=== PATIENT | female | born 1950 | race Caucasian/White ===

== ENCOUNTER → 2018-06-12 | Outpatient (CLI) | payer MEDICARE, OTHER ==
--- NOTE | 2018-06-12 11:33 | RAD ---
History: Osteoporosis screening, ovarian failure, breast cancer with tamoxifen treatment, white female. Comparison: None. Findings: Bone Densitometry was performed with dual photon absorption of the lumbar spine and proximal right femur. Lumbar Spine: Bone density is 1.107 g/cm2 for L1-L4. T-Score is -0.6. Z-score is -0.1. Mean of proximal right femur: Bone density is 0.860 g/cm2. T-Score is -1.2. Z-score is -0.6. Right femoral neck: Bone density is 0.839 g/cm2. T-Score is -1.4. Z-score is -0.5. IMPRESSION: 1. Bone mineral density of lumbar spine appears within normal limits. 2. Osteopenia of the proximal right femur. World Health definition of osteoporosis and osteopenia: Normal = T-Score at or above -1.0; osteopenia = T-score between -1.0 and -2.5; osteoporosis = T-score at or below -2.5 Electronically signed by: Laci Doherty MD (06/12/2018 11:29 AM) [email or web address]
--- NOTE | 2018-06-12 15:27 | RAD ---
DATE: 06/12/2018 EXAM: MAMMO SEVEN SCREENING BILATERAL HISTORY: Previous left breast cancer COMPARISON: 06/06/2016 This study was interpreted with the benefit of Computerized Aided Detection (CAD). The breast parenchyma shows scattered fibroglandular densities. Breast parenchyma level B. FINDINGS: 2-D and 3-D tomosynthesis imaging was performed in CC and MLO projections. There is an irregular density with architectural distortion in the lateral aspect of the left breast which is unchanged and is compatible with scarring on a post therapeutic basis. There is coarse dystrophic calcification centrally within this density. No new or enlarging breast densities are seen. Additional scattered benign type calcifications are present. No suspicious microcalcifications have developed. IMPRESSION: Stable mammograms without evidence of malignancy. BI-RADS CATEGORY: 2 BENIGN FINDING(S) RECOMMENDED FOLLOW-UP: 12M 12 MONTH FOLLOW-UP PQRS compliance statement: Patient information was entered into a reminder system with a target due date for the next mammogram. Mammography is a sensitive method for finding small breast cancers, but it does not detect them all and is not a substitute for careful clinical examination. A negative mammogram does not negate a clinically suspicious finding and should not result in delay in biopsying a clinically suspicious abnormality. "Our facility is accredited by the [employer] Mammography Program."
== END | disposition home or self-care (01) ==
LOC: DXRAD 09:43
PROVIDERS: ATTEND Family Medicine
DX: Z12.31 Encounter for screening mammogram for malignant neoplasm of breast (principal); Z13.820 Encounter for screening for osteoporosis; M85.88 Other specified disorders of bone density and structure, other site
CPT/HCPCS: 77063; 77067; 77080

== ENCOUNTER → 2018-08-01 | Outpatient (CLI) | payer MEDICARE, OTHER ==
--- NOTE | 2018-08-01 17:02 | RAD ---
Complete abdominal ultrasound History: Intermittent left abdominal pain for several months. Comparison: None. Procedure: Transabdominal ultrasound images are obtained. Findings: Visualized pancreas is unremarkable. Liver is normal in echogenicity. No focal hepatic masses are identified. Right lobe of the liver measures 14.1 cm. Gallbladder demonstrates cholelithiasis. No gallbladder wall thickening or pericholecystic fluid is identified. Common bile duct measures normally at 4 mm in diameter. Spleen is homogeneous and measures 11.3 cm in length. Right kidney measures 11.4 cm in length. Moderate hydronephrosis is seen. Left kidney measures 11.8 cm in length. Left kidney demonstrates presence of multiple parapelvic cysts.. Visualized portions of the aorta and IVC have normal caliber. Impression: 1. Moderate right hydronephrosis. Cause is not identified. 2. Left parapelvic cysts. 3. Cholelithiasis without evidence of cholecystitis. Electronically signed by: Laci Doherty MD (08/01/2018 4:58 PM) [email or web address]
== END | disposition home or self-care (01) ==
LOC: US 08:39
PROVIDERS: ATTEND Family Medicine
DX: K80.20 Calculus of gallbladder without cholecystitis without obstruction (principal); N13.39 Other hydronephrosis; N94.89 Other specified conditions associated with female genital organs and menstrual cycle
CPT/HCPCS: 76700

== ENCOUNTER → 2019-07-02 | Outpatient (CLI) | payer MEDICARE, OTHER ==
--- NOTE | 2019-07-03 17:59 | RAD ---
BILATERAL SCREENING MAMMOGRAM, 3-D History: Routine screening. Left breast cancer diagnosed in 1999. Comparison: 05/14/2014, 06/12/2018 mammographic exams. Technique: MLO and CC digital tomosynthesis (3D) images obtained. Radiologist reviewed these images on dedicated workstation. Findings: Breast Tissue Density B : There are scattered areas of fibroglandular density. There are no dominant masses, suspicious microcalcifications, or new architectural distortion. Left upper outer breast postoperative distortion is stable compared to prior exams. IMPRESSION: No mammographic evidence of malignancy. Recommend routine screening. BI-RADS category 1: Negative. The images were reviewed with computer-aided detection. Patient information is entered into reminder system with a target due date for the next screening mammogram. Mammography is the most sensitive method for finding small breast cancers, but it does not detect them all and is not a substitute for careful clinical examination. A negative mammogram does not negate a clinically suspicious finding and should not result in delay in biopsying a clinically suspicious abnormality. "Our facility is accredited by the [employer] Mammography [employer]." Electronically signed by: Fede Baires MD (07/03/2019 5:56 PM) [facility]
== END | disposition home or self-care (01) ==
LOC: MAMMO 08:04
PROVIDERS: ATTEND Family Medicine
DX: Z12.31 Encounter for screening mammogram for malignant neoplasm of breast (principal); Z85.3 Personal history of malignant neoplasm of breast
CPT/HCPCS: 77063; 77067

== ENCOUNTER → 2020-07-04 | Outpatient (CLI) | payer MEDICARE, OTHER ==
--- NOTE | 2020-07-04 12:42 | RAD ---
DATE: 07/04/2020 11:05 AM EXAM: MAMMO SEVEN SCREENING BILATERAL HISTORY: Screening . Personal history of left breast DCIS lumpectomy in 2000 COMPARISON: 07/02/2019 Bilateral CC and MLO views of the breasts were performed. Bilateral breast tomosynthesis was performed in CC and MLO projections. This study was interpreted with the benefit of Computerized Aided Detection (CAD). FINDINGS: Breast Density: FATTY The Breast Parenchyma is primarily fatty replaced. Breast parenchyma level density A. Stable benign postsurgical change in the posterior upper outer left breast. No suspicious masses, microcalcifications or architectural distortion is present to suggest malignancy in either breast. The visualized axillae are unremarkable. IMPRESSION: No mammographic evidence of malignancy. BI-RADS CATEGORY: 2 BENIGN FINDING(S) RECOMMENDED FOLLOW-UP: 12M 12 MONTH FOLLOW-UP Annual screening mammography is recommended, unless clinically indicated sooner based on symptoms or change in physical exam. PQRS compliance statement: Patient information was entered into a reminder system with a target due date for the next mammogram. Mammography is a sensitive method for finding small breast cancers, but it does not detect them all and is not a substitute for careful clinical examination. A negative mammogram does not negate a clinically suspicious finding and should not result in delay in biopsying a clinically suspicious abnormality. "Our facility is accredited by the [employer] Mammography [employer]."
== END | disposition home or self-care (01) ==
LOC: MAMMO 10:54
PROVIDERS: ATTEND Family Medicine
DX: Z12.31 Encounter for screening mammogram for malignant neoplasm of breast (principal)
CPT/HCPCS: 77063; 77067

== ENCOUNTER → 2020-09-22 | Outpatient (CLI) | payer MEDICARE, OTHER ==
--- NOTE | 2020-09-22 10:44 | RAD ---
EXAM: DUAL ENERGY X-RAY ABSORPTIOMETRY (DEXA). HISTORY: Postmenopausal screening. FINDINGS: The lowest measured T-score is -1.5 in the right femoral neck, based on a bone mineral density of 0.750 g/cm^2. Refer to the worksheets for full detail. In comparison with the prior study of 06/12/2018, average bone mineral density at the lumbar spine has changed +1.2%, while the average density at the right hip has changed +1.9%. IMPRESSION: Low bone mass. Bone mineral density yields a T-score between -1.0 and -2.5. Fracture risk is increased. FRAX was not calculated. METHODOLOGY: Dual energy x-ray absorptiometry was performed to measure bone mineral density. The following analysis is based on the 2019 Official Positions of the International Society for Clinical Densitometry: Measurements of the hips and the average of L1-L4 are preferred. When the spine and/or hip cannot be feasibly measured or interpreted, or in the setting of hyperparathyroidism, distal radial bone mineral density may be measured. The lumbar spine T-score is based on the average bone mineral density of L1-L4. In the setting of artifact or anatomic abnormality, some lumbar levels may be excluded, and the remaining levels used for calculation. A single lumbar level is not used for diagnosis, and if only a single level is available for assessment, another anatomic site will be used to assign a diagnosis. The hip T-score is based on the bone mineral density measurement of the femoral neck or total proximal femur of either side, whichever is lowest. Bilateral mean values are not used for diagnosis. The forearm T-score is derived from 33% of the distal radius of the nondominant forearm. For postmenopausal and perimenopausal women, and men age 50 or older, of all ethnic groups, T-scores are calculated through comparison of the current measurement with the NHANES III database standard for females aged 20-29 years. The lowest T-score of the evaluated anatomic sites is used to assign a diagnosis based on the World Health Organization densitometric classification. In premenopausal females and males younger than age 50, a Z-score is calculated based on population specific reference data for patient sex and self-reported ethnicity. Electronically signed by: Radha Bolivar MD (09/22/2020 10:41 AM) [id number]
== END ==
LOC: DXRAD 09:52
PROVIDERS: ATTEND Family Medicine
DX: M89.9 Disorder of bone, unspecified (principal); M85.88 Other specified disorders of bone density and structure, other site; M81.8 Other osteoporosis without current pathological fracture; M94.9 Disorder of cartilage, unspecified
CPT/HCPCS: 77080

== ENCOUNTER → 2021-07-06 | Outpatient (CLI) | payer MEDICARE, OTHER ==
--- NOTE | 2021-07-07 09:00 | RAD ---
INDICATION: 71 years of age asymptomatic female patient presents for screening mammography. TECHNIQUE: Full field craniocaudal and mediolateral oblique images of both breasts were obtained usi ng digital technique with tomosynthesis and also analyzed with computer-aided detection software. COMPARISON: Prior mammographic imaging 07/04/2020 06/06/2016 07/02/2019, 06/12/2018 BREAST COMPOSITION: Category B: There are scattered fibroglandular densities. FINDINGS: Benign calcifications are present. The parenchymal pattern appears stable. No suspicious masses, microcalcifications or architectural distortion is present to suggest malignanc y in either breast. The visualized axillae are unremarkable. IMPRESSION: No mammographic evidence of malignancy. RECOMMENDATION: Annual screening mammography is recommended, unless clinically indicated sooner based on symptoms or change in physical exam. BIRADS 2: BENIGN This study was interpreted with the benefit of Computerized Aided Detection (CAD). Patient information is entered into the reminder system with a target due date for the next screening mammogram. Mammography is the most sensitive method for finding small breast cancers, but it does not detect the m all and is not a substitute for careful clinical examination. A negative mammogram does not negate a clinically suspicious finding and should not result in delay in biopsying a clinically suspicious a bnormality. "Our facility is accredited by the [employer] Mammography Program." Electronically signed by: Jourdan Montez MD (07/07/2021 8:57 AM) [facility]
== END ==
LOC: MAMMO 07:54
PROVIDERS: ATTEND Family Medicine
DX: Z12.31 Encounter for screening mammogram for malignant neoplasm of breast (principal)
CPT/HCPCS: 77063; 77067

== ENCOUNTER → 2021-08-11 | Outpatient (CLI) | payer MEDICARE, OTHER ==
--- NOTE | 2021-08-11 10:48 | RAD ---
Site ID: [id number] EXAMINATION: Left lower extremity duplex venous ultrasound. TECHNIQUE: DVT protocol. Multiple sonographic images with color Doppler and waveform interrogation we re performed of the left lower extremity veins with compression and augmentation maneuvers. INDICATION: 71 years Female, left leg pain. FINDINGS: The left lower extremity veins from the groin to below the knee veins were examined with no rmal color-flow, compressibility and waveform demonstrated. The great saphenous vein visualized porti on proximally is patent. IMPRESSION: No evidence of DVT in the left lower extremity. Electronically signed by: Ryley De La Torre MD (08/11/2021 10:45 AM) [id number]
== END ==
LOC: RAD 09:00
PROVIDERS: ATTEND Family Medicine
DX: M79.605 Pain in left leg (principal)
CPT/HCPCS: 93971

== ENCOUNTER → 2021-08-31 | Outpatient (CLI) | payer MEDICARE, OTHER ==
[~2021-08-31] MED LIST: IOHEXOL 240 MG/ML 50ML VIAL. ONE; IOHEXOL 240 MG/ML 50ML VIAL. PO ONE; IOHEXOL 300 MG/ML 75 ML VIAL. IV ONE
--- NOTE | 2021-08-31 11:25 | RAD ---
EXAM: Abdomen and pelvis CT with intravenous contrast. HISTORY: Left lower extremity swelling. TECHNIQUE: Computed tomographic images of the abdomen and pelvis were obtained following the administ ration of intravenous contrast. Multiplanar reformatting was performed. *One or more of the following individualized dose reduction techniques were utilized for this examina tion: 1. Automated exposure control. 2. Adjustment of the mA and/or kV according to patient size. 3. Use of iterative reconstruction technique. COMPARISON: None. FINDINGS: Evaluation of the lower thorax demonstrates basilar atelectasis. No infiltrate or pleural e ffusion is seen. There is biliary ductal dilatation, likely due to reservoir effect status post vamshi cystectomy. There is a 6 mm hypodense lesion within the posterior right hepatic lobe, too small to ch aracterize. The pancreas is unremarkable. There is a splenule adjacent to a normal sized spleen. The adrenal glands are unremarkable. There are multiple bilateral renal parapelvic cysts. There are few small simple cortical cysts measur ing up to 2.7 cm within the left kidney. No solid renal lesion is seen. There is no hydronephrosis. T here is renal cortical thinning. There is no appendicitis. There is no bowel obstruction. There is distal colonic diverticulosis. Ther e is no diverticulitis. The urinary bladder is unremarkable. The uterus is absent. No adnexal lesion is seen. The aorta is normal in caliber. There is mild aortic and bilateral iliac atherosclerosis. No pathologically enlarged mesenteric or peritoneal lymph node is seen. There are degenerative changes throughout the visualized spine, primarily at the lumbosacral junction . There are few tiny benign bone islands and osseous hemangiomas. There is no acute or suspicious oss eous finding. There are multiple radiodensities along a suspected surgical scar along the proximal la teral left thigh subcutaneous fat. IMPRESSION: 1. Distal colonic diverticulosis. 2. Multiple simple renal cysts. Follow-up is not routinely performed for simple cysts. 3. Biliary ductal dilatation likely due to reservoir effect status post cholecystectomy. 4. 6 mm hypodense lesion within the liver. This is too small to characterize on this exam. In the abs ence of known malignancy, this likely a cyst or hemangioma. 5. Scarring within the proximal lateral left thigh subcutaneous fat with associated radiodense postop erative material or dense calcification. No suspicious mass or fluid collection is seen in this locat ion. Correlate with surgical history. Electronically signed by: Vickie Meyer MD (08/31/2021 11:23 AM) [id number]
== END ==
LOC: CT 09:41
PROVIDERS: ATTEND Family Medicine
DX: K57.30 Diverticulosis of large intestine without perforation or abscess without bleeding (principal); N28.1 Cyst of kidney, acquired; M79.89 Other specified soft tissue disorders; N94.89 Other specified conditions associated with female genital organs and menstrual cycle
CPT/HCPCS: 74177; Q9966; Q9967

== ENCOUNTER 2021-10-06 08:32 | Emergency (ER) | payer MEDICARE, OTHER ==
[~2021-10-06] VITALS: Ht 167.6 cm; Wt 99.8 kg
--- NOTE | 2021-10-06 08:44 | PHYS DOC ---
Adult General Chief Complaint Chief Complaint: CHEST PAIN HPI HPI Patient is a 71-year-old female presenting via POV for chest pain. Reports she was woken from sleep at 5:30 AM with substernal chest pressure. States it is pressure in nature with some radiation to left arm and back and has been steady. She reports it was initially 7/10 severity but was able to get up and tried to drink coffee thinking it was acid reflux but her symptoms did not significantly improve prompting her to come in for evaluation. Nothing known makes better, laying flat and physical exertion makes worse. Timing of symptoms has been constant since onset. Severity is decreased but chronicity of symptoms concerned her and daughter prompting her to come in for evaluation. Patient does admit she has had troubles with her blood pressure and swelling in recent weeks. She has been well covered in outpatient setting with primary care physician and had recent echocardiogram performed that was unremarkable. Admits she has had left upper extremity and left lower extremity swelling and has had ultrasonography of left lower extremity performed that was unremarkable for DVT, she was expected to present for outpatient labs prior to seeing primary care physician today but given symptoms, decided to come in the ER for evaluation instead. Has no personal history of CAD. Admits only new medication changes decreasing hydrochlorothiazide for which she uses for new onset edema. Review of Systems Review of Systems Fourteen body systems of review of systems have been reviewed. See HPI for pertinent positives and negative responses, other chan all other systems are negative, non-pertinent or non-contributory Allergies Allergies Allergies Coded Allergies Type Severity Reaction Last Updated Verified No Known Drug Allergies 08/31/21 No Physical Exam Physical Exam Constitutional: Well developed, well nourished, no acute distress, non-toxic appearance. HENT: Normocephalic, atraumatic, bilateral external ears normal, oropharynx moist, no oral exudates, nose normal. Eyes: PERRLA, EOMI, conjunctiva normal, no discharge. Neck: Normal range of motion, no tenderness, supple, no stridor. Cardiovascular: Heart rate regular, sinus rhythm, no murmurs rubs or gallops Lungs & Thorax: Bilateral breath sounds clear to auscultation Abdomen: Bowel sounds normal, soft, no tenderness, no masses, no pulsatile masses. Nonsurgical abdomen, no peritoneal signs Skin: Warm, dry, no erythema, no rash. Back: No tenderness, no CVA tenderness. Extremities: No tenderness, no cyanosis, no clubbing, ROM intact, no edema. Neurologic: Alert and oriented X 3, grossly normal motor & sensory function, no focal deficits noted. Psychologic: Affect normal, judgement normal, mood normal. Current Patient Data Vital Signs Vital Signs Date Time Temp Pulse Resp B/P (MAP) Pulse Ox O2 Delivery O2 Flow Rate FiO2 10/06/21 08:49 98.5 62 18 130/66 (87) 98 Room Air Vital Signs Date Time Temp Pulse Resp B/P (MAP) Pulse Ox O2 Delivery O2 Flow Rate FiO2 10/06/21 09:26 74 18 120/61 (80) 96 Room Air 10/06/21 08:49 98.5 Lab Results Laboratory Tests Test 10/06/21 09:24 White Blood Count 7.6 x10^3/uL Red Blood Count 4.25 x10^6/uL Hemoglobin 12.5 g/dL Hematocrit 37.6 % Mean Corpuscular Volume 89 fL Mean Corpuscular Hemoglobin 29 pg Mean Corpuscular Hemoglobin Concent 33 g/dL Red Cell Distribution Width 12.8 % Platelet Count 184 x10^3/uL Neutrophils (%) (Auto) 74 % Lymphocytes (%) (Auto) 15 % Monocytes (%) (Auto) 8 % Eosinophils (%) (Auto) 2 % Basophils (%) (Auto) 0 % Neutrophils # (Auto) 5.6 x10^3uL Lymphocytes # (Auto) 1.1 x10^3/uL Monocytes # (Auto) 0.6 x10^3/uL Eosinophils # (Auto) 0.2 x10^3/uL Basophils # (Auto) 0.0 x10^3/uL D-Dimer (Amie) 0.73 mg/L Sodium Level 145 mmol/L Potassium Level 4.0 mmol/L Chloride Level 107 mmol/L Carbon Dioxide Level 30 mmol/L Anion Gap 8 Blood Urea Nitrogen 18 mg/dL Creatinine 0.8 mg/dL Estimated GFR (Cockcroft-Gault) 70.5 Glucose Level 97 mg/dL Calcium Level 9.1 mg/dL [id number]-[id number] Natriuretic Peptide 493 pg/mL Current Medications Medications (Trade) Dose Ordered Sig/Monroe Route PRN Reason Start Time Stop Time Status Last Admin Dose Admin Aspirin (Aspirin Chewable) 324 mg 1X ONCE PO 10/06/21 09:00 10/06/21 09:06 DC 10/06/21 09:17 Nitroglycerin (Nitrostat) 0.4 mg PRN Q5MIN PRN SL CP RATING > 1/10 10/06/21 09:00 10/07/21 08:59 10/06/21 09:46 Iohexol (Omnipaque 350 Mg/ml) 100 ml 1X ONCE IV 10/06/21 10:15 10/06/21 10:21 DC 10/06/21 10:23 EKG EKG EKG ordered and interpreted by myself at 0855 hrs. is sinus rhythm at 75 bpm, prolonged QTC at 474 otherwise unremarkable intervals, left axis deviation, no STEMI Radiology/Procedures Radiology/Procedures EXAM: AP View of the chest DATE: 10/06/2021 9:04 AM INDICATION: Reason: CHEST PAIN ONSET THIS MORNING, HX OF ASTHMA / Spl. Instructions: / History: COMPARISON: No Prior FINDINGS: The heart is not enlarged. Mediastinal and hilar contours are normal. Patchy opacity left lung base likely atelectasis or developing consolidation. Trace left pleural effusion. No pneumothorax. IMPRESSION: Patchy opacity left lung base likely atelectasis or developing consolidation. Trace left pleural effusion Electronically signed by: Jourdan Montez MD (10/06/2021 9:11 AM) [id number] Heart Score C/O Chest Pain: Yes HEART Score for Chest Pain: HEART Score for Chest Pain Response (Comments) Value History Moderately Suspicious 1 ECG Normal 0 Age > 65 2 Risk Factors 1 or 2 Risk Factors 1 Total 4 Risk Factors: Risk Factors: DM, Current or recent (<one month) smoker, HTN, HLP, family history of CAD, obesity. Risk Scores: Risk Factors: DM, Current or recent (<one month) smoker, HTN, HLP, family histo ry of CAD, obesity. Course & Med Decision Making Course & Med Decision Making ABCs unremarkable HPI physical exam and comprehensive ER work-up nonconcerning for any emergent or surgical issues I discussed most likely diagnosis of developing pneumonia, joint decision made to treat this with azithromycin and amoxicillin for which patient tolerated in ER setting I discussed elevated heart score and recommended hospitalization for further cardiac observation, patient deferred Also disclosed in its entirety all ER findings significant for pulmonary nodules and renal and parapelvic cysts which will require nonemergent outpatient follow- up, patient understood importance of this Patient still voicing to discharge home and attempt outpatient therapy, as such, close outpatient follow-up and strict return precautions were discussed at length. All questions and concerns addressed prior to ER departure Soni Disclaimer Soni Disclaimer This electronic medical record was generated, in whole or in part, using a voice recognition dictation system. Departure Departure: Impression: Primary Impression: Pneumonia Additional Impressions: Atypical chest pain Pulmonary nodule Bilateral renal cysts Edema Disposition: HOME / SELF CARE / HOMELESS Condition: STABLE Referrals: JAMES PERAZA MD (PCP) Additional Instructions: As discussed prior to ER departure, your vitals, physical exam and comprehensive ER work-up was nonconcerning for any emergent or surgical issues I discussed all findings with you prior to ER departure. I stressed concern for developing pneumonia and so antibiotics were prescribed. Also disclosed finding of pulmonary nodule that will require monitoring in outpatient setting with repeat CT chest In addition, bilateral renal and parapelvic cysts were incidentally found that should prompt outpatient follow-up via ultrasonography Please contact your primary care provider today to review ER visit and need for close outpatient follow-up. If any concerning signs or symptoms present prior to outpatient follow-up please do not hesitate to come back for repeat evaluation. It was a pleasure to take care of you and I wish you the best going forward Scripts Amoxicillin (AMOXICILLIN) 500 Mg Tablet 2 TAB PO BID for pneumonia for 7 Days, #28 TAB Prov: LUPE HA DO 10/06/21 Azithromycin (AZITHROMYCIN TABLET) 250 Mg Tablet 250 MG PO DAILY for ANTI-BIOTIC, #4 TAB 0 Refills Prov: LUPE HA DO 10/06/21 Problem Qualifiers LUPE HA DO Oct 06, 2021 08:43
[2021-10-06] MEDS ORDERED: ASPIRIN CHEWABLE 81 MG TABLET. PO ONE (09:00)
--- NOTE | 2021-10-06 09:11 | EKG ---
[address] [address] Test Date: 2021-10-06 Test Time: 08:50:09 Pat Name: DAV KING Department: Room: Gender: F Shop Teacher: AYLA : 1950 Requested By: LUPE HA Order Number: [id number] Reading MD: Tres Villeda MD Measurements Intervals [place] Rate: 75 P: -58 [place]: 148 QRS: -7 QRSD: 84 T: 42 QT: 422 QTc: 474 Interpretive Statements SINUS RHYTHM PAC NON-SPECIFIC ST/T CHANGES Electronically Signed On 10-08-2021 20:52:35 PAIN MEDICINE PHYSICIAN by Tres Villeda MD
--- NOTE | 2021-10-06 09:14 | RAD ---
EXAM: AP View of the chest DATE: 10/06/2021 9:04 AM INDICATION: Reason: CHEST PAIN ONSET THIS MORNING, HX OF ASTHMA / Spl. Instructions: / History: COMPARISON: No Prior FINDINGS: The heart is not enlarged. Mediastinal and hilar contours are normal. Patchy opacity left lung base likely atelectasis or developing consolidation. Trace left pleural effu td. No pneumothorax. IMPRESSION: Patchy opacity left lung base likely atelectasis or developing consolidation. Trace left pleural effu td Electronically signed by: Jourdan Montez MD (10/06/2021 9:11 AM) [id number]
[2021-10-06] MEDS: NITROGLYCERIN SUBLINGUAL 0.4 MG BOTTLE OF 25. SL PRN ×2 (09:25→09:46)
[2021-10-06 09:40] LABS: BASO % 0 % (0-3); EOS # 0.2 x10^3/uL (0.0-0.7); EOS % 2 % (0-3); HEMATOCRIT 37.6 % (36.0-47.0); HEMOGLOBIN 12.5 g/dL (12.0-15.5); LYMPH # 1.1 x10^3/uL (1.0-4.8); LYMPH % 15 % (24-48); MEAN CORPUSCULAR HEMOGLOBIN 29 pg (25-35); MEAN CORPUSCULAR HGB CONC 33 g/dL (31-37); MEAN CORPUSCULAR VOLUME 89 fL (79-100); MONO # 0.6 x10^3/uL (0.0-1.1); MONO % 8 % (0-9); NEUT # 5.6 x10^3uL (1.8-7.7); NEUT % 74 % (31-73); PLATELET COUNT 184 x10^3/uL (140-400); RED BLOOD COUNT 4.25 x10^6/uL (3.50-5.40); RED CELL DISTRIBUTION WIDTH 12.8 % (11.5-14.5); WHITE BLOOD COUNT 7.6 x10^3/uL (4.0-11.0)
[2021-10-06 09:59] LABS: CALCIUM 9.1 mg/dL (8.5-10.1); CREATININE 0.8 mg/dL (0.6-1.0); GFR 70.5
[2021-10-06] MEDS ORDERED: IOHEXOL 350 MG/ML 100 ML VIAL. IV ONE (10:15)
--- NOTE | 2021-10-06 10:52 | RAD ---
EXAM: CT chest with contrast - pulmonary embolus protocol CLINICAL HISTORY: Reason: SHORTNESS OF BREATH - 100MLS OMNI 350 / Spl. Instructions: / History: . COMPARISON: 10/06/2020. TECHNIQUE: CT of the chest following the administration of intravenous contrast during the pulmonary arterial phase. Axial, coronal and sagittal reformatted images were generated including MIP images. ---PQRS compliance statement - One or more of the following individualized dose reduction techniques were utilized for this study: 1. Automated exposure control 2. Adjustment of the mA and/or kV according to patient size 3. Use of iterative reconstruction technique--- FINDINGS: CHEST: Diagnostic quality: Adequate. Pulmonary emboli: No pulmonary emboli to the level of the subsegmental branches. More peripheral ves sels are not well assessed. Right heart strain: None Pulmonary arteries: Normal in caliber. Heart is not enlarged. No pericardial effusion. No pleural effusion. No pneumothorax. No mediastinal or hilar lymphadenopathy. No axillary lymphadenopathy. Linear and bandlike opacities lower lobes likely scarring/atelectasis. Minimal patchy opacities left lung base. 5 mm medial right upper lobe lung nodule (image 35) is seen. No aggressive osseous lesion is seen. Degenerative changes in spine are seen. Several renal cysts inc luding parapelvic cysts are seen within the kidneys bilaterally. There may be mild hydronephrosis alt mary not well profiled. IMPRESSION: 1. No pulmonary emboli to the level of the subsegmental branches. More peripheral vessels are not we ll assessed. 2. 5 mm medial right upper lobe lung nodule. Per Fleischner Society guidelines for incidentally foun d solid nodules measuring less than 6 mm, no follow-up is necessary if patient is considered at low r isk for lung cancer. If patient is considered to be at high risk, such as with history of smoking, en CT follow-up in about 12 months can be considered. 3. Bilateral renal and parapelvic cysts are seen. Mild hydronephrosis is suspected although not well profiled given the parapelvic cysts. This can be further assessed by ultrasound. 4. Minimal patchy opacities left lung base a represent atelectasis although early/developing consoli dation is not excluded.. Electronically signed by: Jourdan Montez MD (10/06/2021 10:50 AM) [facility]
[2021-10-06 11:00] VITALS: BP 113/52
[2021-10-06] MEDS ORDERED: AMOX500T PO (11:16)
[2021-10-06] MEDS ORDERED: AZIT250T6 PO (11:16)
[2021-10-06] MEDS ORDERED: AMOXICILLIN 250 MG CAPSULE PO ONE (11:30)
[2021-10-06] MEDS ORDERED: AZITHROMYCIN 250 MG TABLET. PO ONE (11:30)
== END 2021-10-06 11:23 | disposition home or self-care (01) ==
LOC: ER 08:32
DX: J18.9 Pneumonia, unspecified organism (principal); R07.89 Other chest pain; R91.1 Solitary pulmonary nodule; R60.9 Edema, unspecified; N28.1 Cyst of kidney, acquired
CPT/HCPCS: 36415; 71045; 71275; 80048; 83880; 84484; 85025; 85379; 93005; 99285; Q9967